=== PATIENT | male | born 1935 | race Caucasian/White ===

== ENCOUNTER 2016-12-13 21:35 | Inpatient (IN) | payer MEDICARE, BC ==
[2016-12-13] MEDS ORDERED: Albuterol/Ipratropium NEB.SOL* Albuterol 2.5 MG/Ipratropium 0.5 MG 3 ML INH ONE (21:37)
[2016-12-13] MEDS ORDERED: methylPREDNISolone 125 MG* 2 ML VIAL IV ONE (21:37)
[2016-12-13 22:27] LABS: Hematocrit 34 % (42-52); Hemoglobin 10.8 g/dl (14.0-18.0); Mean Corpuscular HGB Conc 32 g/dl (31-36); Mean Corpuscular Hemoglobin 27 pg (27-31); Mean Corpuscular Volume 85 fL (80-94); Mean Platelet Volume 9 um3 (7.4-10.4); Red Blood Count 3.98 10^6/ul (4.0-5.4); Red Cell Distribution Width 15 % (10.5-15); White Blood Count 15.7 10^3/ul (3.5-10.8)
[2016-12-13 22:42] LABS: Albumin 3.5 g/dL (3.2-5.2); BUN/Creatinine Ratio 27.1 (8-20); Calcium 8.9 mg/dL (8.6-10.3); EGFR African American 84.9 (>60); Globulin 3.6 g/dL (2-4); Potassium 3.9 mmol/L (3.5-5.0); Total Bilirubin 0.3 mg/dL (0.2-1.0); Total Protein 7.1 g/dL (6.4-8.9)
[2016-12-13 22:45] LABS: Troponin I 0.03 ng/mL (<0.04)
[2016-12-13] MEDS ORDERED: Acetaminophen TAB* 325 MG PO PRN (22:58)
[2016-12-13] MEDS ORDERED: Albuterol 2.5 MG/3 ML NEB.SOL* (0.083%) INH PRN (22:58)
[2016-12-13] MEDS ORDERED: Ondansetron INJ* 2 MG/ML VIAL IV PRN (22:58)
[2016-12-13] MEDS ORDERED: Melatonin (NF) 3 MG TAB PO PRN (22:58)
[2016-12-13] MEDS ORDERED: NS 0.9% 1000 ML* 1,000 ML IV SCH (23:00)
--- NOTE | 2016-12-13 23:06 | ED ---
Vikram King SooYoung, scribed for Scot Barnes MD on 12/13/16 at 2149 . Shortness of Breath - HPI Summary HPI Summary: A 81 y/o M MERRITT presents to ED with c/o SOB onset approx 2129. Pert PMHx: asthma , aspirations, PNA. 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 Associated sx: fever, pedal edema, exhaustion. He does not use home O2. He states he has had PNA 3x since March 2016. Pt is visiting [facility] for his grandson's graduation. Pt is a non-smoker. - History of Current Complaint Chief Complaint: EDShortnessOfBreath Time Seen by Provider: 12/13/16 21:37 Hx Obtained From: Patient, EMS Onset/Duration: Sudden Onset, Still Present Timing: Constant Associated Signs & Symptoms: Fever, Edema Related History: Obesity - Allergy/Home Medications Allergies/Adverse Reactions: Allergies Allergy/AdvReac Type Severity Reaction Status Date / Time Honey Allergy Unknown Verified 12/13/16 22:25 Reaction Details Home Medications: Home Medications Albuterol HFA INHALER* [Ventolin HFA Inhaler*] 1 puff INH Q4H PRN 12/13/16 [ History Confirmed 12/13/16] Aspirin Low Dose CHEW TAB* [Aspirin Low Dose TAB*] 81 mg PO DAILY 12/13/16 [ History Confirmed 12/13/16] Atorvastatin* [Lipitor*] 80 mg PO 1700 12/13/16 [History Confirmed 12/13/16] Cholecalciferol TAB* [Vitamin D TAB*] 2,000 units PO DAILY 12/13/16 [History Confirmed 12/13/16] Cyanocobalamin TAB* [Vitamin B12 TAB*] 1,000 mcg PO DAILY 12/13/16 [History Confirmed 12/13/16] Escitalopram Oxalate [Lexapro 10 mg] 10 mg PO DAILY 12/13/16 [History Confirmed 12/13/16] Fluticasone-Salmeterol 100-50* [Advair Diskus 100-50*] 1 puff INH BID 12/13/16 [ History Confirmed 12/13/16] Furosemide TAB* [Lasix TAB*] 40 mg PO DAILY 12/13/16 [History Confirmed 12/13/16 ] Ipratropium [place] (Nasal) 1 dose INH Q6H PRN 12/13/16 [History Confirmed 12/13] Levothyroxine TAB* [Synthroid TAB*] 137 mcg PO DAILY 12/13/16 [History Confirmed 12/13/16] [place]-3 Fatty Acids (Nf) [Fish Oil (NF)] 1,000 mg PO DAILY 12/13/16 [History Confirmed 12/13/16] Potassium Chlor TAB* [Klor Con ER TAB*] 20 meq PO DAILY 12/13/16 [History Confirmed 12/13/16] Tiotropium CAP.INH* [Spiriva CAP.INH*] 1 cap.inh INH DAILY 12/13/16 [History Confirmed 12/13/16] Valsartan TAB* [Diovan TAB*] 160 mg PO DAILY 12/13/16 [History Confirmed ] metFORMIN* [Glucophage 500 MG TAB *] 500 mg PO QPM 12/13/16 [History Confirmed 12/13/16] PMH/Surg Hx/FS Hx/Imm Hx Previously Healthy: No Respiratory History: Reports: Hx Asthma, Hx Pneumonia Opthamlomology History: Denies: Hx Legally Blind - Surgical History Surgery Procedure, Year, and Place: trach Infectious Disease History: No Infectious Disease History: Denies: Traveled Outside the [place] in Last 30 Days - Social History Occupation: Retired Lives: With Family Review of Systems Positive: Fever Positive: Shortness Of Breath Positive: Edema - bilat pedal edema Neurological: Other - pos: exhaustion All Other Systems Reviewed And Are Negative: Yes Physical Exam Triage Information Reviewed: Yes Vital Signs On Initial Exam: Initial Vitals Temp 101.4 F 12/13/16 21:36 Vital Signs Reviewed: Yes Appearance: Positive: No Pain Distress, Ill-Appearing Skin: Positive: Warm Head/Face: Positive: Normal Head/Face Inspection Eyes: Positive: CHI ENT: Positive: Hearing grossly normal, Other - trach in place Neck: Positive: Supple Respiratory/Lung Sounds: Positive: Rhonchi - coarse scattered bilat Cardiovascular: Positive: RRR Abdomen Description: Positive: Nontender, Soft Bowel Sounds: Positive: Present Musculoskeletal: Positive: Strength/ROM Intact Neurological: Positive: Alert, Oriented to Person Place, Time Psychiatric: Positive: Affect/Mood Appropriate Diagnostics - Vital Signs Vital Signs Temp Pulse Resp BP Pulse Ox 12/13/16 21:37 101.4 F 103 24 120/52 83 12/13/16 21:36 101.4 F - Laboratory Lab Results: Lab Results 12/13/16 12/13/16 12/13/16 Range/Units 22:10 22:10 22:10 WBC 15.7 H (3.5-10.8) 10^3/ul RBC 3.98 L (4.0-5.4) 10^6/ul Hgb 10.8 L (14.0-18.0) g/dl Hct 34 L (42-52) % MCV 85 (80-94) fL MCH 27 (27-31) pg MCHC 32 (31-36) g/dl RDW 15 (10.5-15) % Plt Count 246 (150-450) 10^3/ul MPV 9 (7.4-10.4) um3 Neut % (Auto) 89.1 H (38-83) % Lymph % (Auto) 2.9 L (25-47) % [place] % (Auto) 7.3 (1-9) % Eos % (Auto) 0.5 (0-6) % Baso % (Auto) 0.2 (0-2) % Absolute Neuts (auto) 14.0 H (1.5-7.7) 10^3/ul Absolute Lymphs (auto) 0.5 L (1.0-4.8) 10^3/ul Absolute Monos (auto) 1.2 H (0-0.8) 10^3/ul Absolute Eos (auto) 0.1 (0-0.6) 10^3/ul Absolute Basos (auto) 0 (0-0.2) 10^3/ul Absolute Nucleated RBC 0 10^3/ul Nucleated RBC % 0 Sodium 137 (133-145) mmol/L Potassium 3.9 (3.5-5.0) mmol/L Chloride 105 (101-111) mmol/L Carbon Dioxide 26 (22-32) mmol/L Anion Gap 6 (2-11) mmol/L BUN 29 H (6-24) mg/dL Creatinine 1.07 (0.67-1.17) mg/dL Est GFR ( Amer) 84.9 (>60) Est GFR (Non-Af Amer) 66.0 (>60) BUN/Creatinine Ratio 27.1 H (8-20) Glucose 137 H (70-100) mg/dL Lactic Acid 1.0 (0.5-2.0) mmol/L Calcium 8.9 (8.6-10.3) mg/dL Total Bilirubin 0.30 (0.2-1.0) mg/dL AST 16 (13-39) U/L ALT 12 (7-52) U/L Alkaline Phosphatase 60 (34-104) U/L Troponin I 0.03 (<0.04) ng/mL Total Protein 7.1 (6.4-8.9) g/dL Albumin 3.5 (3.2-5.2) g/dL Globulin 3.6 (2-4) g/dL Albumin/Globulin Ratio 1.0 (1-3) Result Diagrams: 12/13/16 22:10 12/13/16 22:10 Lab Statement: Any lab studies that have been ordered have been reviewed, and results considered in the medical decision making process. Re-Evaluation - Re-Evaluation 1 Re-Evaluation Time: 22:10 Change: Improved Comment: Pt undergoing breathing treatment. Course/Dx - Course Course Of Treatment: Pt is an 81 y/o M BIBA presenting with SOB. Pert PMHx: asthma, aspirations, PNA. Pt has a trach in place. Associated sx: fever, pedal edema, exhaustion. He does not use home O2. Pt is a non-smoker. Pt given Solumedrol and Albuterol in ED. Lab results show elevated glucose, and BUN/C ratio. Trop is 0.03. - Diagnoses Provider Diagnoses: Pneumonia - Physician Notifications Discussed Care of Patient With: Dr. Fried, hospitalist Time Discussed With Above Provider: 22:28 Instructed by Provider To: Admit As Inpatient Discharge - Discharge Plan Condition: Fair Disposition: ADMITTED TO [facility] The documentation as recorded by the Vikram edwards SooYoung accurately reflects the service I personally performed and the decisions made by me, Scot Barnes MD.
[2016-12-13] MEDS ORDERED: cefTRIAXone VIAL(*) 1,000 MG in NS 0.9% 50 ML* 50 ML IVPB SCH (23:30)
--- NOTE | 2016-12-13 23:35 | HP ---
H&P (Free Text) History and Physical: PCP: out of town Date/Time of Evaluation: 12/13/2016 2245 CC: SOB, malaise HPI: Mr Zurita is an 81YO male HX COPD, tracheostomy for paralyzed vocal cord/ hypoxia, DM2, HTN, HLD who is in town for his grandson's [employer] graduation. He was feeling fine during the ceremony, but at the office manager receptionist afterwards began feeling SOB, fatigued, and malaise. He was checked out by the aid station at the dormitory and found to be febrile at 102F with an saO2 in the 80s prompting a call to EMS. He reports cough starting yesterday, but no recent choking episodes associated with eating/drinking. He denies chest pain, N/V, subjective F/C, sweats, palpitations, change in bowel/bladder, abdominal pain, or other issues. He states he does occasionally have fevers in the evenings up to 102F that respond to acetaminophen and resolve my morning. He has had 3-4 aspiration pneumonias since Jun 2016. 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 (3-4 since Jun 2016) COPD DM2 HTN HLD OA Ambulatory Orders Albuterol HFA INHALER* [Ventolin HFA Inhaler*] 1 puff INH Q4H PRN 12/13/16 Aspirin Low Dose CHEW TAB* [Aspirin Low Dose TAB*] 81 mg PO DAILY 12/13/16 Atorvastatin* [Lipitor*] 80 mg PO 1700 12/13/16 Cholecalciferol TAB* [Vitamin D TAB*] 2,000 units PO DAILY 12/13/16 Cyanocobalamin TAB* [Vitamin B12 TAB*] 1,000 mcg PO DAILY 12/13/16 Escitalopram Oxalate [Lexapro 10 mg] 10 mg PO DAILY 12/13/16 Fluticasone-Salmeterol 100-50* [Advair Diskus 100-50*] 1 puff INH BID 12/13/16 Furosemide TAB* [Lasix TAB*] 40 mg PO DAILY 12/13/16 Ipratropium [place] (Nasal) 1 dose INH Q6H PRN 12/13/16 Levothyroxine TAB* [Synthroid TAB*] 137 mcg PO DAILY 12/13/16 [place]-3 Fatty Acids (Nf) [Fish Oil (NF)] 1,000 mg PO DAILY 12/13/16 Potassium Chlor TAB* [Klor Con ER TAB*] 20 meq PO DAILY 12/13/16 Tiotropium CAP.INH* [Spiriva CAP.INH*] 1 cap.inh INH DAILY 12/13/16 Valsartan TAB* [Diovan TAB*] 160 mg PO DAILY 12/13/16 metFORMIN* [Glucophage 500 MG TAB *] 500 mg PO QPM 12/13/16 Allergies Honey Allergy (Verified 12/13/16 22:25) Unknown Reaction Details PSurgHx OU cataract extractions tracheostomy B TKA SocHx: no tobacco, minimal alcohol, no recreational drugs; ambulates with walker ; lives with his , planning to return to their home in [place] upon discharge ; full code status FamHx: Father: COPD, passed in his 80s; Mother: passed in her 90s ROS: as above, otherwise reviewed and all were negative Constitutional: NAD, normally developed, obese elderly white male vitals: Vital Signs Temp 37.7 C 12/13/16 23:01 Pulse 95 12/13/16 23:01 Resp 20 12/13/16 23:01 BP 129/48 12/13/16 23:01 Pulse Ox 98 12/13/16 23:01 Intake & Output 12/12/16 12/13/16 12/13/16 23:59 11:59 23:59 Weight 99.79 kg HEENM: atraumatic; sclera/conjunctiva: non-icteric/clear; hearing: clinically intact; oropharynx: clear, mucosa moist Neck: soft tissue: non-tender, tracheostomy present; thyroid: normal Pulmonary: coarse crackle RLL, no wheeze, fair aeration, no accessory muscle use CV: RR/RR, normal S1S2, no carotid bruit, no femoral bruit, no abdominal bruit, no jugular venous distention, 2+ B DP/PT, trace LLE edema Abdominal: soft, non-distended, non-tender, no rebound/guarding/rigidity, normoactive bowel sounds, no hepatosplenomegaly or masses, no costovertebral angle tenderness Musculoskeletal: general: grossly intact; gait: stable w/ walker Integumental: LLE w/ changes of venous stasis; otherwise normal appearance and texture of exposed skin Psychiatric orientation: AA&O to PPS affect: calm mood: pleasant eye contact: good content: reliable responses: timely insight: good Testing: Lab Results 12/13/16 12/13/16 12/13/16 Range/Units 22:10 22:10 22:10 WBC 15.7 H (3.5-10.8) 10^3/ul RBC 3.98 L (4.0-5.4) 10^6/ul Hgb 10.8 L (14.0-18.0) g/dl Hct 34 L (42-52) % MCV 85 (80-94) fL MCH 27 (27-31) pg MCHC 32 (31-36) g/dl RDW 15 (10.5-15) % Plt Count 246 (150-450) 10^3/ul MPV 9 (7.4-10.4) um3 Neut % (Auto) 89.1 H (38-83) % Lymph % (Auto) 2.9 L (25-47) % [place] % (Auto) 7.3 (1-9) % Eos % (Auto) 0.5 (0-6) % Baso % (Auto) 0.2 (0-2) % Absolute Neuts (auto) 14.0 H (1.5-7.7) 10^3/ul Absolute Lymphs (auto) 0.5 L (1.0-4.8) 10^3/ul Absolute Monos (auto) 1.2 H (0-0.8) 10^3/ul Absolute Eos (auto) 0.1 (0-0.6) 10^3/ul Absolute Basos (auto) 0 (0-0.2) 10^3/ul Absolute Nucleated RBC 0 10^3/ul Nucleated RBC % 0 Sodium 137 (133-145) mmol/L Potassium 3.9 (3.5-5.0) mmol/L Chloride 105 (101-111) mmol/L Carbon Dioxide 26 (22-32) mmol/L Anion Gap 6 (2-11) mmol/L BUN 29 H (6-24) mg/dL Creatinine 1.07 (0.67-1.17) mg/dL Est GFR ( Amer) 84.9 (>60) Est GFR (Non-Af Amer) 66.0 (>60) BUN/Creatinine Ratio 27.1 H (8-20) Glucose 137 H (70-100) mg/dL Lactic Acid 1.0 (0.5-2.0) mmol/L Calcium 8.9 (8.6-10.3) mg/dL Total Bilirubin 0.30 (0.2-1.0) mg/dL AST 16 (13-39) U/L ALT 12 (7-52) U/L Alkaline Phosphatase 60 (34-104) U/L Troponin I 0.03 (<0.04) ng/mL Total Protein 7.1 (6.4-8.9) g/dL Albumin 3.5 (3.2-5.2) g/dL Globulin 3.6 (2-4) g/dL Albumin/Globulin Ratio 1.0 (1-3) ECG, personally reviewed: ordered, pending CXR, personally reviewed: ordered, pending Impression: 81M HX recurrent aspiration pneumonia presents w/ same DIAGNOSIS & PLAN Primary aspiration pneumonia : IV ceftriaxone & azithromycin : IVFs : sputum & blood CXs : check urine Legionella & S pneumo antigens : check rapid influenza as he has been traveling : supplemental oxygen : supportive care Secondary 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
[2016-12-14] MEDS ORDERED: Azithromycin IV(*) 500 MG in NS 0.9% 250 ML* 250 ML IVPB SCH ×2
[2016-12-14] MEDS: Albuterol 2.5 MG/3 ML NEB.SOL* (0.083%) INH SCH ×4 (01:54→19:24)
[2016-12-14 05:28] LABS: Hematocrit 34 % (42-52); Hemoglobin 10.9 g/dl (14.0-18.0); Mean Corpuscular HGB Conc 32 g/dl (31-36); Mean Corpuscular Hemoglobin 27 pg (27-31); Mean Corpuscular Volume 85 fL (80-94); Mean Platelet Volume 9 um3 (7.4-10.4); Red Blood Count 3.98 10^6/ul (4.0-5.4); Red Cell Distribution Width 15 % (10.5-15); White Blood Count 18.8 10^3/ul (3.5-10.8)
[2016-12-14] MEDS: Levothyroxine TAB* 137 MCG TAB PO SCH (05:39)
[2016-12-14] MEDS: Omeprazole CAP* 20 MG PO SCH (05:39)
[2016-12-14] MEDS: Heparin VIAL(*) 5000 UNITS/ML VIAL (FIVE THOUSAND) SUBCUT SCH ×3 (05:39→23:11)
[2016-12-14 05:45] LABS: BUN/Creatinine Ratio 25.8 (8-20); Calcium 8.6 mg/dL (8.6-10.3); EGFR Non-African American 81.6 (>60); Potassium 3.9 mmol/L (3.5-5.0)
[2016-12-14] MEDS ORDERED: Insulin LISPRO* 1 UNITS UNIT SUBCUT SCH (07:30)
--- NOTE | 2016-12-14 07:46 | RAD ---
HISTORY: Shortness of breath COMPARISONS: None VIEWS: 2: Frontal and lateral views of the chest. FINDINGS: CARDIOMEDIASTINAL SILHOUETTE: The cardiac silhouette is enlarged. The cardiomediastinal silhouette is otherwise normal. BARBY: The barby are normal. PLEURA: There is a small right pleural effusion with fluid in the minor fissure. LUNG PARENCHYMA: There is a diffuse reticular pattern with indistinct pulmonary vessels. ABDOMEN: The upper abdomen is clear. There is no subphrenic gas. BONES AND SOFT TISSUES: No bone or soft tissue abnormalities are noted. OTHER: The tracheostomy tube is noted IMPRESSION: CARDIOMEGALY WITH PULMONARY INTERSTITIAL EDEMA
[2016-12-14] MEDS: Tiotropium CAP.INH* CAP.INH/18 MCG INH SCH (07:48)
[2016-12-14] MEDS: Mometasone/Formoter 200/5 MDI INH SCH ×2 (07:53→19:27)
[2016-12-14] MEDS ORDERED: Spiriva Inhaler DEVICE* 1 EACH DEVICE ONE (09:00)
[2016-12-14] MEDS ORDERED: Tiotropium CAP.INH* CAP.INH/18 MCG INH SCH (09:00)
[2016-12-14] MEDS ORDERED: Potassium Chlor TAB* 10 MEQ TAB.ER PO SCH (09:00)
[2016-12-14] MEDS ORDERED: Docusate CAP* 100 MG PO SCH (09:00)
[2016-12-14] MEDS: Valsartan TAB* 160 MG PO SCH (09:36)
[2016-12-14] MEDS: Furosemide TAB* 40 MG PO SCH (09:37)
[2016-12-14] MEDS: Citalopram TAB* 20 MG PO SCH (09:37)
[2016-12-14] MEDS: Aspirin Low Dose CHEW TAB* 81 MG PO SCH (09:37)
[2016-12-14] MEDS: Insulin LISPRO* 1 UNITS UNIT SUBCUT SCH ×4 (09:40→23:44)
[2016-12-14] MEDS ORDERED: Docusate CAP* 100 MG PO PRN (10:13)
[2016-12-14] MEDS: Potassium Chloride LIQUID* 20 MEQ PACKET PO SCH (10:17)
--- NOTE | 2016-12-14 10:21 | PN ---
Subjective Date of Service: 12/14/16 Interval History: Pt is feeling better than when he presented to the ER. He states his breathing feels fairly comfortable-better than when he has had pneumonia in the past. He has been coughing up some brownish/blood tinged sputum this AM. He has not done any walking around. Objective Active Medications: Acetaminophen (Tylenol Tab*) 650 mg PO Q6H PRN PRN Reason: FEVER/PAIN Albuterol (Ventolin 2.5 Mg/3 Ml Neb.Jessica*) 2.5 mg INH Q2H PRN PRN Reason: SOB/WHEEZING Albuterol (Ventolin 2.5 Mg/3 Ml Neb.Jessica*) 2.5 mg INH [id number] AWAKE [facility] Last Admin: 12/14/16 07:48 Dose: 2.5 mg Aspirin (Aspirin Low Dose Tab*) 81 mg PO DAILY [facility] Last Admin: 12/14/16 09:37 Dose: 81 mg Atorvastatin Calcium (Lipitor*) 80 mg PO 1700 [facility] Citalopram Hydrobromide (Celexa Tab*) 10 mg PO DAILY [facility] Last Admin: 12/14/16 09:37 Dose: 10 mg Docusate Sodium (Colace Cap*) 200 mg PO BID PRN PRN Reason: CONSTIPATION Furosemide (Lasix Tab*) 40 mg PO DAILY [facility] Last Admin: 12/14/16 09:37 Dose: 40 mg Heparin Sodium (Porcine) (Heparin Vial(*)) 5,000 units SUBCUT Q8HR [facility] Last Admin: 12/14/16 05:39 Dose: 5,000 units Piperacillin Sod/Tazobactam (Sod 3.375 gm/ IV Solution) 115 mls @ 28.75 mls/hr IVPB Q8H [facility] Insulin Human Lispro (Humalog*) 0 units SUBCUT ACHS [facility] PRN Reason: Protocol Last Admin: 12/14/16 09:40 Dose: 6 units Levothyroxine Sodium (Synthroid Tab*) 137 mcg PO DAILY@0600 [facility] Last Admin: 12/14/16 05:39 Dose: 137 mcg Melatonin (Melatonin (Nf)) 3 mg PO BEDTIME PRN; Protocol PRN Reason: Sleep Mometasone Furoate/Formoterol Fumar (Dulera 200/5 Mdi*) 2 puff INH BID [facility] Last Admin: 12/14/16 07:53 Dose: 2 puff Omeprazole (Prilosec Cap*) 20 mg PO DAILY@0600 [facility] Last Admin: 12/14/16 05:39 Dose: 20 mg Ondansetron HCl (Zofran Inj*) 4 mg IV Q6H PRN PRN Reason: NAUSEA Potassium Chloride (Klor-Con Liquid*) 20 meq PO DAILY [facility] Tiotropium [place] (Spiriva Cap.Inh*) 1 cap INH DAILY [facility] Last Admin: 12/14/16 07:48 Dose: 1 cap Valsartan (Diovan Tab*) 160 mg PO DAILY [facility] Last Admin: 12/14/16 09:36 Dose: 160 mg Vital Signs 12/13/16 12/13/16 12/13/16 23:00 23:01 23:04 Temperature 100 F 99.5 F Pulse Rate 99 95 80 Respiratory 24 20 20 Rate Blood Pressure 129/48 136/54 (mmHg) O2 Sat by Pulse 98 98 94 Oximetry 12/13/16 12/13/16 12/14/16 23:20 23:30 00:00 Temperature Pulse Rate 92 93 79 Respiratory 17 21 Rate Blood Pressure 129/46 153/55 (mmHg) O2 Sat by Pulse 97 99 98 Oximetry 12/14/16 12/14/16 12/14/16 00:02 00:34 01:24 Temperature 98.8 F 99.5 F Pulse Rate 79 91 80 Respiratory 20 20 Rate Blood Pressure 144/118 153/55 136/54 (mmHg) O2 Sat by Pulse 96 94 Oximetry 12/14/16 12/14/16 12/14/16 01:33 02:01 03:01 Temperature 98.5 F Pulse Rate 76 83 Respiratory 20 19 16 Rate Blood Pressure 136/62 (mmHg) O2 Sat by Pulse 98 94 Oximetry 12/14/16 12/14/16 12/14/16 07:19 07:57 08:00 Temperature 97.8 F Pulse Rate 73 72 Respiratory 15 14 16 Rate Blood Pressure 133/66 (mmHg) O2 Sat by Pulse 100 98 Oximetry Oxygen Devices in Use Now: - - trach collar-O2 sat is 98% Appearance: Elderly male sitting up in bed, NAD Eyes: No Scleral Icterus Ears/Nose/Mouth/Throat: Mucous Membranes Moist, - - tracheostomy in place, scant blood tinged sputum noted on the gown below the trach Respiratory: Symmetrical Chest Expansion and Respiratory Effort, - - R lung sounds are coarse and roncherous, L lower lobe is coarse KIZZY clear Cardiovascular: NL Sounds; No Murmurs; No JVD - distant heart sounds, RRR, - - trace L LE edema Abdominal: NL Sounds; No Tenderness; No Distention Extremities: No Clubbing, Cyanosis Skin: No Rash or Ulcers, No Nodules or Sclerosis Neurological: Alert and Oriented x 3 Result Diagrams: 12/14/16 04:50 12/14/16 04:50 Additional Lab and Data: Lab Results 12/13/16 12/13/16 12/13/16 Range/Units 22:10 22:10 22:10 WBC 15.7 H (3.5-10.8) 10^3/ul RBC 3.98 L (4.0-5.4) 10^6/ul Hgb 10.8 L (14.0-18.0) g/dl Hct 34 L (42-52) % MCV 85 (80-94) fL MCH 27 (27-31) pg MCHC 32 (31-36) g/dl RDW 15 (10.5-15) % Plt Count 246 (150-450) 10^3/ul MPV 9 (7.4-10.4) um3 Neut % (Auto) 89.1 H (38-83) % Lymph % (Auto) 2.9 L (25-47) % [place] % (Auto) 7.3 (1-9) % Eos % (Auto) 0.5 (0-6) % Baso % (Auto) 0.2 (0-2) % Absolute Neuts (auto) 14.0 H (1.5-7.7) 10^3/ul Absolute Lymphs (auto) 0.5 L (1.0-4.8) 10^3/ul Absolute Monos (auto) 1.2 H (0-0.8) 10^3/ul Absolute Eos (auto) 0.1 (0-0.6) 10^3/ul Absolute Basos (auto) 0 (0-0.2) 10^3/ul Absolute Nucleated RBC 0 10^3/ul Nucleated RBC % 0 Sodium 137 (133-145) mmol/L Potassium 3.9 (3.5-5.0) mmol/L Chloride 105 (101-111) mmol/L Carbon Dioxide 26 (22-32) mmol/L Anion Gap 6 (2-11) mmol/L BUN 29 H (6-24) mg/dL Creatinine 1.07 (0.67-1.17) mg/dL Est GFR ( Amer) 84.9 (>60) Est GFR (Non-Af Amer) 66.0 (>60) BUN/Creatinine Ratio 27.1 H (8-20) Glucose 137 H (70-100) mg/dL Lactic Acid 1.0 (0.5-2.0) mmol/L Calcium 8.9 (8.6-10.3) mg/dL Total Bilirubin 0.30 (0.2-1.0) mg/dL AST 16 (13-39) U/L ALT 12 (7-52) U/L Alkaline Phosphatase 60 (34-104) U/L Troponin I 0.03 (<0.04) ng/mL Total Protein 7.1 (6.4-8.9) g/dL Albumin 3.5 (3.2-5.2) g/dL Globulin 3.6 (2-4) g/dL Albumin/Globulin Ratio 1.0 (1-3) Microbiology and Other Data: Microbiology 12/13/16 23:20 Legionella Urinary Antigen - Final Urine Negative Legionella Streptococcus pneumoniae Ag Screen - Final Negative S. pneumo Antigen 12/13/16 23:20 Influenza Types A,B Antigen (ISMAEL) - Final Nasopharyngeal Specimen received for Influenza A/B Molecular testing Assess/Plan/Problems-Billing Mr Zurita is an 81 yo M who has a h/o tracheostomy for paralyzed vocal cords, recurrent aspiration pneumonias, COPD, type II DM, HTN and HLD who presented to the ER with c/o fever and SOB and was admitted for a presumed aspiration pneumonia. - Patient Problems (1) Aspiration pneumonia Current Visit: Yes Status: Acute Code(s): J69.0 - PNEUMONITIS DUE TO INHALATION OF FOOD AND VOMIT SNOMED Code(s): 633359398 Comment: The patient has had recurrent aspiration pneumonias since 06/2016. I suspect this is the case this hospitalization. Will change from ceftriaxone/ azithromycin to zosyn for better coverage for aspiration. His WBC count is up further today-? secondary to steroids or b/c the initial Abx regimen was not adequate. He is no longer febrile. Will continue on IV Abx today and exchange engineer to oral tomorrow and likely d/c tomorrow. Will try to get a sputum culture. (2) COPD (chronic obstructive pulmonary disease) Current Visit: Yes Status: Acute Code(s): J44.9 - CHRONIC OBSTRUCTIVE PULMONARY DISEASE, UNSPECIFIED SNOMED Code(s): 02142791 Comment: No signs of exacerbation at this time. Will continue current inhaler /neb regimen. (3) Tracheostomy dependence Current Visit: Yes Status: Acute Code(s): Z93.0 - TRACHEOSTOMY STATUS SNOMED Code(s): 394215034 Comment: Pt will continue with his own trach care. No issues at this time. (4) Type II diabetes mellitus Current Visit: Yes Status: Acute Comment: Sugars are elevated though likely secondary to the steroids he received yesterday. Will continue lispro sliding scale and resume metformin. (5) HTN (hypertension) Current Visit: Yes Status: Acute Code(s): I10 - ESSENTIAL (PRIMARY) HYPERTENSION SNOMED Code(s): 15550501 Comment: BP is under good control. Continue valsartan. (6) HLD (hyperlipidemia) Current Visit: Yes Status: Acute Code(s): E78.5 - HYPERLIPIDEMIA, UNSPECIFIED SNOMED Code(s): 10058727 Comment: Continue lipitor. (7) DVT prophylaxis Current Visit: Yes Status: Acute Code(s): [id number] - SNOMED Code(s): 418845725 Comment: SQ heparin (8) Full code status Current Visit: Yes Status: Acute Code(s): Z78.9 - OTHER SPECIFIED HEALTH STATUS SNOMED Code(s): 611319104
[2016-12-14] MEDS: Piperac/Tazob 3.375 gm in NS* 3.375 GM in PREMIX* 0 ML IVPB SCH ×4 (10:53→19:37)
[2016-12-14] MEDS ORDERED: Saline NASAL SPRAY 0.65%* BTL BOTH NARES PRN (15:08)
[2016-12-14] MEDS ORDERED: Atorvastatin* 80 MG TAB PO SCH (17:00)
[2016-12-14] MEDS ORDERED: metFORMIN* 500 MG TAB PO SCH (18:00)
[2016-12-14] MEDS ORDERED: Insulin GLARGINE(*) 1 UNITS UNIT SUBCUT SCH (21:00)
[2016-12-15] MEDS: Albuterol 2.5 MG/3 ML NEB.SOL* (0.083%) INH SCH ×2 (01:27→08:28)
[2016-12-15] MEDS: Piperac/Tazob 3.375 gm in NS* 3.375 GM in PREMIX* 0 ML IVPB SCH ×2 (02:32)
[2016-12-15] MEDS: Heparin VIAL(*) 5000 UNITS/ML VIAL (FIVE THOUSAND) SUBCUT SCH (05:33)
[2016-12-15] MEDS: Omeprazole CAP* 20 MG PO SCH (05:33)
[2016-12-15] MEDS: Levothyroxine TAB* 137 MCG TAB PO SCH (05:33)
[2016-12-15] MEDS: Mometasone/Formoter 200/5 MDI INH SCH (07:30)
[2016-12-15] MEDS: Tiotropium CAP.INH* CAP.INH/18 MCG INH SCH (07:31)
[2016-12-15 07:35] VITALS: BP 121/54
[2016-12-15] MEDS: Potassium Chloride LIQUID* 20 MEQ PACKET PO SCH (08:20)
[2016-12-15] MEDS: Insulin LISPRO* 1 UNITS UNIT SUBCUT SCH (08:21)
[2016-12-15] MEDS: Valsartan TAB* 160 MG PO SCH (08:22)
[2016-12-15] MEDS: Furosemide TAB* 40 MG PO SCH (08:22)
[2016-12-15] MEDS: Citalopram TAB* 20 MG PO SCH (08:22)
[2016-12-15] MEDS: Aspirin Low Dose CHEW TAB* 81 MG PO SCH (08:22)
[2016-12-15 08:26] LABS: Hematocrit 30 % (42-52); Hemoglobin 9.6 g/dl (14.0-18.0); Mean Corpuscular HGB Conc 32 g/dl (31-36); Mean Corpuscular Hemoglobin 28 pg (27-31); Mean Corpuscular Volume 85 fL (80-94); Mean Platelet Volume 9 um3 (7.4-10.4); Red Blood Count 3.47 10^6/ul (4.0-5.4); Red Cell Distribution Width 15 % (10.5-15); White Blood Count 9.6 10^3/ul (3.5-10.8)
--- NOTE | 2016-12-15 09:39 | PN ---
Subjective Date of Service: 12/15/16 Interval History: Pt is feeling well. He is anxious to go home. He states he had a loose BM this AM. No SOB with exertion this AM. Objective Active Medications: Acetaminophen (Tylenol Tab*) 650 mg PO Q6H PRN PRN Reason: FEVER/PAIN Albuterol (Ventolin 2.5 Mg/3 Ml Neb.Jessica*) 2.5 mg INH Q2H PRN PRN Reason: SOB/WHEEZING Aspirin (Aspirin Low Dose Tab*) 81 mg PO DAILY [facility] Last Admin: 12/15/16 08:22 Dose: 81 mg Atorvastatin Calcium (Lipitor*) 80 mg PO 1700 [facility] Last Admin: 12/14/16 16:26 Dose: 80 mg Citalopram Hydrobromide (Celexa Tab*) 10 mg PO DAILY [facility] Last Admin: 12/15/16 08:22 Dose: 10 mg Docusate Sodium (Colace Cap*) 200 mg PO BID PRN PRN Reason: CONSTIPATION Furosemide (Lasix Tab*) 40 mg PO DAILY [facility] Last Admin: 12/15/16 08:22 Dose: 40 mg Heparin Sodium (Porcine) (Heparin Vial(*)) 5,000 units SUBCUT Q8HR [facility] Last Admin: 12/15/16 05:33 Dose: 5,000 units Piperacillin Sod/Tazobactam (Sod 3.375 gm/ IV Solution) 115 mls @ 28.75 mls/hr IVPB Q8H [facility] Last Admin: 12/15/16 02:32 Dose: 28.75 mls/hr Insulin Human Lispro (Humalog*) 0 units SUBCUT ACHS [facility] PRN Reason: Protocol Last Admin: 12/15/16 08:21 Dose: 2 units Levothyroxine Sodium (Synthroid Tab*) 137 mcg PO DAILY@0600 [facility] Last Admin: 12/15/16 05:33 Dose: 137 mcg Melatonin (Melatonin (Nf)) 3 mg PO BEDTIME PRN; Protocol PRN Reason: Sleep Metformin HCl (Glucophage*) 500 mg PO QPM [facility] Last Admin: 12/14/16 16:26 Dose: 500 mg Mometasone Furoate/Formoterol Fumar (Dulera 200/5 Mdi*) 2 puff INH BID [facility] Last Admin: 12/15/16 07:30 Dose: 2 puff Omeprazole (Prilosec Cap*) 20 mg PO DAILY@0600 [facility] Last Admin: 12/15/16 05:33 Dose: 20 mg Ondansetron HCl (Zofran Inj*) 4 mg IV Q6H PRN PRN Reason: NAUSEA Potassium Chloride (Klor-Con Liquid*) 20 meq PO DAILY [facility] Last Admin: 12/15/16 08:20 Dose: 20 meq Sodium Chloride (Sodium Chloride 0.65% Nasal [place]*) 2 spray BOTH NARES Q4H PRN PRN Reason: dryness Last Admin: 12/14/16 16:26 Dose: 2 nasal.spr Tiotropium [place] (Spiriva Cap.Inh*) 1 cap INH DAILY [facility] Last Admin: 12/15/16 07:31 Dose: 1 cap Valsartan (Diovan Tab*) 160 mg PO DAILY [facility] Last Admin: 12/15/16 08:22 Dose: 160 mg Vital Signs 12/14/16 12/14/16 12/14/16 11:35 12:58 16:54 Temperature 98.6 F Pulse Rate 61 76 67 Respiratory 16 17 17 Rate Blood Pressure 116/55 133/64 (mmHg) O2 Sat by Pulse 99 96 97 Oximetry 12/14/16 12/14/16 12/14/16 19:28 19:33 19:49 Temperature Pulse Rate 61 61 Respiratory 20 17 20 Rate Blood Pressure 126/59 (mmHg) O2 Sat by Pulse 100 100 Oximetry 12/14/16 12/15/16 12/15/16 23:03 01:50 04:08 Temperature 98.5 F Pulse Rate 73 55 Respiratory 16 16 Rate Blood Pressure 125/65 121/47 (mmHg) O2 Sat by Pulse 97 100 99 Oximetry 12/15/16 12/15/16 12/15/16 04:40 07:15 07:32 Temperature 98.6 F 98.2 F Pulse Rate 56 16 Respiratory 99 Rate Blood Pressure 121/54 (mmHg) O2 Sat by Pulse 98 99 Oximetry 12/15/16 08:27 Temperature Pulse Rate 55 Respiratory 16 Rate Blood Pressure (mmHg) O2 Sat by Pulse 55 Oximetry Oxygen Devices in Use Now: - - trach collar Appearance: Elderly male sitting up in bed, NAD Eyes: No Scleral Icterus Ears/Nose/Mouth/Throat: Mucous Membranes Moist Neck: - - trach in place Respiratory: Symmetrical Chest Expansion and Respiratory Effort, Clear to Auscultation - with few RLL crackles Cardiovascular: NL Sounds; No Murmurs; No JVD, RRR, No Edema Abdominal: NL Sounds; No Tenderness; No Distention Extremities: No Clubbing, Cyanosis Skin: No Rash or Ulcers, No Nodules or Sclerosis Neurological: Alert and Oriented x 3 Result Diagrams: 12/15/16 07:59 12/14/16 04:50 Additional Lab and Data: Lab Results 12/13/16 12/13/16 12/13/16 Range/Units 22:10 22:10 22:10 WBC 15.7 H (3.5-10.8) 10^3/ul RBC 3.98 L (4.0-5.4) 10^6/ul Hgb 10.8 L (14.0-18.0) g/dl Hct 34 L (42-52) % MCV 85 (80-94) fL MCH 27 (27-31) pg MCHC 32 (31-36) g/dl RDW 15 (10.5-15) % Plt Count 246 (150-450) 10^3/ul MPV 9 (7.4-10.4) um3 Neut % (Auto) 89.1 H (38-83) % Lymph % (Auto) 2.9 L (25-47) % [place] % (Auto) 7.3 (1-9) % Eos % (Auto) 0.5 (0-6) % Baso % (Auto) 0.2 (0-2) % Absolute Neuts (auto) 14.0 H (1.5-7.7) 10^3/ul Absolute Lymphs (auto) 0.5 L (1.0-4.8) 10^3/ul Absolute Monos (auto) 1.2 H (0-0.8) 10^3/ul Absolute Eos (auto) 0.1 (0-0.6) 10^3/ul Absolute Basos (auto) 0 (0-0.2) 10^3/ul Absolute Nucleated RBC 0 10^3/ul Nucleated RBC % 0 Sodium 137 (133-145) mmol/L Potassium 3.9 (3.5-5.0) mmol/L Chloride 105 (101-111) mmol/L Carbon Dioxide 26 (22-32) mmol/L Anion Gap 6 (2-11) mmol/L BUN 29 H (6-24) mg/dL Creatinine 1.07 (0.67-1.17) mg/dL Est GFR ( Amer) 84.9 (>60) Est GFR (Non-Af Amer) 66.0 (>60) BUN/Creatinine Ratio 27.1 H (8-20) Glucose 137 H (70-100) mg/dL Lactic Acid 1.0 (0.5-2.0) mmol/L Calcium 8.9 (8.6-10.3) mg/dL Total Bilirubin 0.30 (0.2-1.0) mg/dL AST 16 (13-39) U/L ALT 12 (7-52) U/L Alkaline Phosphatase 60 (34-104) U/L Troponin I 0.03 (<0.04) ng/mL Total Protein 7.1 (6.4-8.9) g/dL Albumin 3.5 (3.2-5.2) g/dL Globulin 3.6 (2-4) g/dL Albumin/Globulin Ratio 1.0 (1-3) Microbiology and Other Data: Microbiology 12/13/16 23:20 Legionella Urinary Antigen - Final Urine Negative Legionella Streptococcus pneumoniae Ag Screen - Final Negative S. pneumo Antigen 12/13/16 23:20 Influenza Types A,B Antigen (ISMAEL) - Final Nasopharyngeal Specimen received for Influenza A/B Molecular testing Assess/Plan/Problems-Billing Mr Zurita is an 81 yo M who has a h/o tracheostomy for paralyzed vocal cords, recurrent aspiration pneumonias, COPD, type II DM, HTN and HLD who presented to the ER with c/o fever and SOB and was admitted for a presumed aspiration pneumonia. - Patient Problems (1) Aspiration pneumonia Current Visit: Yes Status: Acute Code(s): J69.0 - PNEUMONITIS DUE TO INHALATION OF FOOD AND VOMIT SNOMED Code(s): 136619338 Comment: Pt appears quite well today. He is breathing comfortably without any significant coughing. His WBC count has normalized today. Will d/c pt home on augmentin 500mg BID x5 more days. He will follow up with his PCP in 4-7 days. (2) COPD (chronic obstructive pulmonary disease) Current Visit: Yes Status: Acute Code(s): J44.9 - CHRONIC OBSTRUCTIVE PULMONARY DISEASE, UNSPECIFIED SNOMED Code(s): 75400857 Comment: No signs of exacerbation at this time. Will continue current inhaler /neb regimen. (3) Tracheostomy dependence Current Visit: Yes Status: Acute Code(s): Z93.0 - TRACHEOSTOMY STATUS SNOMED Code(s): 148382162 Comment: Pt will continue with his own trach care. No issues at this time. (4) Type II diabetes mellitus Current Visit: Yes Status: Acute Comment: Sugars are under fair control on metformin 500mg daily. A1c is slightly elevated at 6.5%. Follow up with PCP. (5) HTN (hypertension) Current Visit: Yes Status: Acute Code(s): I10 - ESSENTIAL (PRIMARY) HYPERTENSION SNOMED Code(s): 72510422 Comment: BP is under good control. Continue valsartan. (6) HLD (hyperlipidemia) Current Visit: Yes Status: Acute Code(s): E78.5 - HYPERLIPIDEMIA, UNSPECIFIED SNOMED Code(s): 03863459 Comment: Continue lipitor. (7) DVT prophylaxis Current Visit: Yes Status: Acute Code(s): XKI2626 - SNOMED Code(s): 083707027 Comment: SQ heparin (8) Full code status Current Visit: Yes Status: Acute Code(s): Z78.9 - OTHER SPECIFIED HEALTH STATUS SNOMED Code(s): 333881535 Status and Disposition: d/c home
--- NOTE | 2016-12-16 03:50 | DS ---
DISCHARGE SUMMARY: DATE OF ADMISSION: 12/13/16 DATE OF DISCHARGE: 12/15/16 PRIMARY CARE PHYSICIAN: Dr. Marlen Bonilla, [place], [place]. PRINCIPAL DIAGNOSIS: Probable aspiration pneumonia. SECONDARY DIAGNOSES: 1. Tracheostomy. 2. Chronic obstructive pulmonary disease. 3. Type 2 diabetes. 4. Hypertension. 5. Hyperlipidemia. DISCHARGE MEDICATIONS: 1. Augmentin 500 mg p.o. b.i.d. x11 more doses. 2. Metformin 500 mg p.o. q.h.s. 3. Valsartan 160 mg p.o. daily. 4. Spiriva 1 puff inhaled daily. 5. Potassium chloride mEq p.o. daily. 6. [place]-3 fatty acid 1000 mg p.o. daily. 7. Levothyroxine 137 mcg p.o. daily. 8. Ipratropium bromide nasal spray 1 spray to each nostril q.12 hours p.r.n. allergies. 9. Lasix 40 mg p.o. daily. 10. Advair 100/50 one puff inhaled twice daily. 11. Lexapro 10 mg p.o. daily. 12. Vitamin B12 1000 mcg p.o. daily. 13. Vitamin D 2000 units p.o. daily. 14. Lipitor 80 mg p.o. q.h.s. 15. Aspirin 81 mg p.o. daily. 16. Albuterol 2 puffs inhaled q.4 hours p.r.n. shortness of breath. HOSPITAL COURSE: Mr. Zurita is an 81-year-old male who was in the [place] area visiting for [employer] [place] graduation, who presented to the emergency room on the evening of 12/13/16 after he developed fever and shortness of breath. The patient was at the [employer] ceremony feeling fine; however, afterwards at a dental receptionist, he began to feel short of breath, fatigue, and malaise. He was checked out at the aid station and found to be febrile at 102 degrees Fahrenheit with an O2 sat in the 80s. The patient was sent to the emergency room where he was felt to have a probable aspiration pneumonia given his history of recurrent aspirations in the recent past. The patient was initially started on ceftriaxone and azithromycin; however, the day after admission, he was changed to Zosyn given the concern for aspiration. His white blood cell count was elevated at 15.7 on admission up to 18.8 the day after admission, which is why he stayed an additional day for another day of IV antibiotics. The patient's white blood cell count was down to 9.6 on the day of discharge. The patient improved quite rapidly. He is no longer requiring any supplemental oxygen. He feels no shortness of breath. He is coughing phlegm and bring up some blood-tinged sputum. His sputum was sent for culture and while this is pending, the Gram stain shows mixed morphotypes resembling normal palak. The patient will be discharged home on Augmentin 500 mg p.o. twice daily to complete 11 more doses. The patient is driving home from [place] to [place], where he resides. The patient was also found to be anemic during the course of his hospitalization. He states that this has been a problem for him in the past. His hemoglobin was 10.8 on the day of admission down to 9.6 on the day of discharge. He will need this followed up by his primary care provider. FOLLOWUP CONCERNS: The patient is being discharged home today, 12/15/16. He is to follow up with his primary care provider, Dr. Marlen Bonilla, in the next 4 to 7 days. ACTIVITY LEVEL: As tolerated. DIET: Diabetic. CONDITION ON DISCHARGE: Stable. TIME SPENT: 35 minutes were spent discharging this patient. CC: Dr. Marlen Bonilla* [id number]/[facility] #: [id number] MTDD
== END 2016-12-15 10:55 | disposition home or self-care (01) | DRG 179 ==
LOC: ED 21:35 → MED 22:54
PROVIDERS: ADMIT Hospitalist; ATTEND Hospitalist
DX: J69.0 Pneumonitis due to inhalation of food and vomit (principal); Z93.0 Tracheostomy status; J38.00 Paralysis of vocal cords and larynx, unspecified; J44.9 Chronic obstructive pulmonary disease, unspecified; D64.9 Anemia, unspecified; E11.9 Type 2 diabetes mellitus without complications; I10 Essential (primary) hypertension; E78.5 Hyperlipidemia, unspecified; Z79.84 Long term (current) use of oral hypoglycemic drugs; Z79.82 Long term (current) use of aspirin; Z79.899 Other long term (current) drug therapy; Z91.018 Allergy to other foods; Z96.653 Presence of artificial knee joint, bilateral; Z82.5 Family history of asthma and other chronic lower respiratory diseases
CPT/HCPCS: 36415; 71020; 80048; 80053; 83036; 83605; 84484; 85025; 85027; 87040; 87070; 87205; 87502; 87899; 93005; 94640; 94760; A9270-GY; J0456; J0696; J1644; J2543; J2930